=== PATIENT | female | born 1940 | race Caucasian/White ===

== ENCOUNTER → 2017-08-06 | Outpatient (CLI) | payer MEDICARE, OTHER ==
[~2017-08-06] MED LIST: ACET-1600 PO; ATOR20TA PO; CA C1TAB28 PO; CAL1TABL7 PO; CIME200T6 PO; HYDR-3237 PO; LEVO50TA64 PO; LOSA100T6 PO; OMEG1CAP24 PO; POTA10CA PO; TRIA1TAB PO
== END | disposition home or self-care (01) ==
LOC: CFH 13:10
PROVIDERS: ATTEND Internal Medicine
DX: M51.37 Other intervertebral disc degeneration, lumbosacral region (principal); M41.80 Other forms of scoliosis, site unspecified
CPT/HCPCS: 72072; 72110